=== PATIENT | female | born 1970 | race Caucasian/White ===

== ENCOUNTER 2020-10-15 08:37 | Emergency (ER) | payer OTHER, SELFPAY ==
[2020-10-15 08:45] VITALS: BP 155/92; PULSE 93; RESP 16; TEMP 36.6; O2SAT 97
--- NOTE | 2020-10-15 09:26 | ED.WOUNDLAC ---
HPI - Wound/Laceration General Chief Complaint: Wound/Laceration Stated Complaint: Laceration Time Seen by Provider: 10/15/20 08:47 Source: patient Mode of arrival: ambulatory Limitations: no limitations History of Present Illness HPI narrative: This is a 49-year-old female that presents to the emergency department for laceration sustained just prior to arrival. Reports she was at work and accidentally stabbed herself in the chin with a paper box maker attempting to open something. Reports bleeding and pain to the area. She is not up-to-date on tetanus. Denies numbness. Related Data Home Medications Medication Instructions Recorded Confirmed dextroamphetamine-amphetamine PO 10/15/20 10/15/20 escitalopram oxalate mg 10/15/20 fenofibrate mg 10/15/20 losartan 10/15/20 oxybutynin chloride mg PO 10/15/20 tramadol mg 10/15/20 Allergies Allergy/AdvReac Type Severity Reaction Status Date / Time No Known Allergies Allergy Verified 10/15/20 08:51 Review of Systems Review of Systems: CONSTITUTIONAL: Denies fever SKIN: Reports laceration NEUROLOGIC: Denies numbness All systems reviewed & are unremarkable except as noted in HPI and below PMFSH Past Medical History Medical History (Updated 10/15/20 @ 09:59 by Jyotsna Vivar PA-C) History of hyperlipidemia History of hypertension Surgical History Surgical History (Updated 10/15/20 @ 09:27 by Jyotsna Vivar PA-C) History of endometrial ablation Social History Social History (Updated 10/15/20 @ 09:27 by Jyotsna Vivar PA-C) Smoking status: Current every day smoker Exam Narrative: GENERAL: Well-appearing, well-nourished, and in no acute distress. HEAD: Normocephalic, atraumatic. 1.5cm linear laceration into subcutaneous tissue to the chin EYES: EOMI. ENT: Mucous membranes moist. Oropharynx without tonsillar hypertrophy exudate or other lesions. EXTREMITIES: Normal range of motion. No edema. SKIN: Warm, dry, no rash. NEURO: No focal deficits. Alert and oriented x3. PSYCH: Normal mood and affect Course Vital Signs Vital signs: Vital Signs Temperature 97.9 F 10/15/20 08:45 Pulse Rate 93 10/15/20 08:45 Respiratory Rate 16 10/15/20 08:45 Blood Pressure 155/92 H 10/15/20 08:45 Pulse Oximetry 97 10/15/20 08:45 Temperature 97.9 F 10/15/20 08:45 Pulse Rate 93 10/15/20 08:45 Respiratory Rate 16 10/15/20 08:45 Blood Pressure 155/92 H 10/15/20 08:45 Pulse Oximetry 97 10/15/20 08:45 Procedures Laceration Laceration 1: Date: 10/15/20 Time: 09:57 Site: face Size (cm): 1.5 Description: linear Depth: simple, single layer Local Anesthetic: lidocaine 1% and with epi Amount of anesthesia used (mL): 3 Pre-repair: irrigated ====== Skin Level ====== Skin layer closed with: nylon Size (cm): 5-0 Number of sutures: 2 Technique: simple, interrupted ====== Subcutaneous Layer ====== ====== Muscle Layer ====== ====== Tendon Layer ====== MDM - Wound/Laceration MDM Narrative Medical decision making narrative: Patient presents to the emergency department with a laceration sustained to her chin. She was updated on tetanus. Wound was irrigated and closed with sutures. Patient was educated on wound care. She is to follow-up with primary care doctor. She was given warnings to return to the ER Critical Care Time Critical Care Time Critical Care Time: No Discharge Plan Discharge Clinical Impression: Laceration Patient Disposition: Home, Self-Care Condition: Stable Instructions: Care For Your Stitches (ED), Laceration (ED) Additional Instructions: Return to the emergency department if you experience fever, redness or swelling of your wound, abnormal drainage from your wound, or any other symptoms that are concerning to you. 1 hour ibuprofen as needed for discomfort. Apply antibiotic ointment daily. Do
--- NOTE | 2020-10-15 09:39 | PC.NURSE ---
PA at bedside for laceration repair.
[2020-10-15] MEDS: LIDO 1%/EPINEPHRINE 1:100,000 20 ML VIAL INFILTRATE (09:43)
[2020-10-15] MEDS: TETANUS,DIPHTHERIA,AC PERTUSSIS ADULT (0.5 ML) BOOSTRIX IM (10:07)
== END 2020-10-15 10:20 | disposition home or self-care (01) ==
PROVIDERS: Emergency Provider Emergency Medicine; PCP Nurse Practitioner Family
DX: S01.81XA Laceration without foreign body of other part of head, initial encounter (principal); Z23 Encounter for immunization; E78.5 Hyperlipidemia, unspecified; I10 Essential (primary) hypertension; F17.200 Nicotine dependence, unspecified, uncomplicated; W27.0XXA Contact with workbench tool, initial encounter
CPT/HCPCS: 12011; 90471; 90715; 99282